=== PATIENT | female | born 1990 | race Caucasian/White ===

== ENCOUNTER 2017-07-09 05:22 | Outpatient (CLI) | payer OTHER ==
[~2017-07-09] VITALS: Ht 154.9 cm; Wt 75.0 kg
[2017-07-09 05:40] VITALS: Ht 154.9 cm; Wt 75.0 kg
[2017-07-09 05:41] VITALS: BP 113/70; PULSE 92; RESP 16
[2017-07-09] MEDS ORDERED: PREN1TAB17 PO (05:43)
--- NOTE | 2017-07-09 07:15 | RADRPT ---
PROCEDURE: OB ultrasound for biophysical profile CLINICAL INDICATION: Leaking fluid TECHNIQUE: Multiple sonographic images of the pelvis were obtained. Transabdominal views of the g ravid uterus are available for review. The images were reviewed on a PACS workstation. COMPARISON: None FINDINGS: breathing movement = 2/2 tone = 2/2 motion = 2/2 JAIME = 2/2 JAIME = 18.3 cm Single live intrauterine with cardiac activity of 154 bpm. position is cephal ic. The placenta is posterior. IMPRESSION: 1. Single live intrauterine gestation. 2. Biophysical profile = 8/8. 3. JAIME = 18.3 cm. RPTAT: HH .Leah Brown MD, MD Date Time Electronically viewed and signed by .Leah Brown MD, on 07/09/2017 07:14 .G/
--- NOTE | 2017-07-09 08:00 | TRIAGE ---
OB Triage Datetime Report Generated by CPN: 07/09/2017 08:00 Datetime: 07/09/2017 07:39 Labor Evaluation Frequency: 0 Monitor Mode: External Pattern: Normal: <= 5 Contractions in 10 Minutes Resting Tone [place]: Relaxed Heart Rate FHR Baseline Rate: 120 Monitor Mode: External US Variability: Moderate 6-25 bpm Accelerations: 15X15 Decelerations: None Category: Category I Pain Presence: None/Denies Datetime: 07/09/2017 07:00 Labor Evaluation Frequency: x1 Monitor Mode: External Duration (sec)2399: 50 Quality: Mild Pattern: Normal: <= 5 Contractions in 10 Minutes Resting Tone [place]: Relaxed Heart Rate FHR Baseline Rate: 120 Monitor Mode: External US Variability: Moderate 6-25 bpm Accelerations: 15X15 Decelerations: None Category: Category I Datetime: 07/09/2017 06:12 Vaginal Exam Dilatation (cms): 1.5 Effacement (%): 50 Station: -2 Vaginal Bleeding: None Cervix, Consistency: Moderate Cervix, Position: Midposition Presentation 'A': Cephalic Datetime: 07/09/2017 06:10 Pool: Negative Nitrazine: Negative Datetime: 07/09/2017 06:00 Labor Evaluation Frequency: X1 Monitor Mode: External Duration (sec)2399: 50 Quality: Mild Pattern: Normal: <= 5 Contractions in 10 Minutes Resting Tone [place]: Relaxed Heart Rate FHR Baseline Rate: 120 Monitor Mode: External US Variability: Moderate 6-25 bpm Accelerations: 15X15 Decelerations: None Category: Category I Datetime: 07/09/2017 05:36 Time of Arrival: 07/09/2017 05:15 EGA: 36.1 Arrived By: Wheelchair Arrived From: Home Chief Complaint: LEAKING X1 TIME AT 1900 07/08/17, DENIES LEAKING SINCE THEN CONTRACTIONS SINCE 0000 IRREGULAR IN FREQUENCY (Annotations: Data stored by CPN on behalf of user ) Movement: Present Contractions: Irregular Time Contractions Began: 07/09/2017 00:00 Contractions: Q2-10 PER PATIENT Rupture of Membranes: Unsure Vaginal Bleeding: None Vaginal Discharge: Denies Recent Sexual Intercouse: Denies Abdominal Trauma: Not Applicable Patient Complaints: Contractions; Other Additional Patient Complaints: LEAKING Time Provider Notified: 07/09/2017 06:16 Provider Notified: Eshaghian Initial Plan: SVE, CEFM, STERILE SPEC, ROMPLUS, BPP WITH JAIME Datetime: 07/09/2017 05:32 Temperature Route: Oral Pain Assessment Pain Scale: 8 Pain Presence: Intermittent Pain Type: Cramping; Contraction Pain Location: Abdomen Datetime: 07/09/2017 05:30 Stage of : OB Triage Assessment Type: Triage Maternal Assessment Level of Consciousness: Fully Conscious DTR's/Clonus: DTRs 2+; No Clonus Headache: Denies Blurred Vision: No Respiratory Effort: Unlabored; Regular Rhythm; Equal Expansion Breath Sounds, Left: Clear and Equal Breath Sounds, Right: Clear and Equal Nausea/Vomiting: Denies RUQ Epigastric Pain: Denies Lower Extremities Edema: Bilateral Lower Extremities Degree: 1+ Upper Extremities Edema: None Degree: None Facial Edema: None Fall Risk Assessment History of Falling: (0) No Secondary Diagnosis: (0) No Ambulatory Aid: (0) Bedrest/Nurse Assist IV Therapy: (0) No Gait: (0) Normal/Bedrest/Immobile Mental Status: (0) Oriented to Own Ability Fall Score: 0 Fall Risk Score Definition: No Risk: No action required
[2017-07-09] MEDS ORDERED: PREN1TAB13 PO (08:08)
--- NOTE | 2017-07-09 08:23 | TRIAGE ---
OB Triage Datetime Report Generated by CPN: 07/09/2017 08:23 Datetime: 07/09/2017 07:56 Frequency: 0 Monitor Mode: External Pattern: Normal: <= 5 Contractions in 10 Minutes Resting Tone [place]: Relaxed FHR Baseline Rate: 125 Monitor Mode: External US Variability: Moderate 6-25 bpm Accelerations: 15X15 Decelerations: None Category: Category I
--- NOTE | 2017-07-09 18:10 | QN ---
Documentation Comment iup 36 weeks gp1 co of LOF vss exam wnl ROM test neg melani wnl a/p iup 36 weeks false labor dc home ARABELLA TURNER MD Jul 09, 2017 18:10
== END 2017-07-09 08:10 | disposition home or self-care (01) ==
LOC: OBT 05:22 → L-D 05:24 → OBT 08:10
PROVIDERS: ATTEND Obstetrics & Gynecology
DX: O47.03 False labor before 37 completed weeks of gestation, third trimester (principal); Z3A.36 36 weeks gestation of pregnancy
CPT/HCPCS: 76818; 84112; Z7500; G0463